=== PATIENT | male | born 1945 ===

== ENCOUNTER → 2018-06-05 | Outpatient (CLI) | payer MEDICARE, OTHER ==
[~2018-06-05] MED LIST: ALBU90OI INH; ALLO300 PO; AMLO10 PO; AMLO5; AMLO5 PO; AMOX875; ASPI81CH; ASPI81CH PO; ASPI81EC; ASPI81EC PO; BYSTOLIC 20 MG PO; CALMAGZIN PO; CAND4; CARV25 PO; CITA20 PO; Calcium Magnes1 EACH PO; DABI150C; DABI150C PO; DIAZ5 PO; DOCU100 PO; FENO54; FLUT1DIS5 INH; FURO40 PO; GEMF600 PO; HYDACE10B PO; LANS15EC; LANS15EC PO; LANS30EC; LEG CRAMPS PM PO; MECL25 PO; META800; Mucinex600 MG PO; NEBI10 PO; OMEP20ER PO; OXAP600; OXAP600 PO; OXYACE5T PO; POTA10T PO; PROBIOTIC1 EAC1; QUIN200; ROSU10TA PO; TAMS.4ER PO; TUSSIN DM SYRU118 ML PO; VALS80 PO; Zithromax250 MG PO; [UNRECOGNIZED DRUG - REMARK]; [UNRECOGNIZED DRUG - REMARK]
[2018-06-05 19:31] LABS: Cholesterol 115 mg/dL (50-200); HDL Cholesterol 38 mg/dL (>39); LDL/HDL RATIO 1.2; Low Density Lipoprotein Chol 46 mg/dL (0-110); Triglycerides 153 mg/dL (30-160); Very Low Density Lipoprot Chol 30 mg/dL (6-32)
== END ==
LOC: LAB SHORT 15:08 → LAB 15:08
DX: I25.10 Atherosclerotic heart disease of native coronary artery without angina pectoris (principal)
CPT/HCPCS: 80061

== ENCOUNTER 2018-11-26 19:38 | Emergency (ER) | payer MEDICARE, OTHER ==
[~2018-11-26] VITALS: Ht 195.6 cm; Wt 108.9 kg
[2018-11-26 20:12] LABS: BASOPHILS ABSOLUTE AUTO 0.03 K/mm3 (0.00-0.23); BASOPHILS PERCENT AUTO 0 % (0-2); EOSINOPHILS ABSOLUTE AUTO 0.25 K/mm3 (0.00-0.68); EOSINOPHILS PERCENT AUTO 3 % (0-6); Hemoglobin 14.6 g/dL (13.5-17.5); IMMATURE GRAN ABSOLUTE AUTO 0.03 K/mm3 (0.00-0.10); IMMATURE GRAN PERCENT AUTO 0 % (0-1); LYMPHOCYTES ABSOLUTE AUTO 1.37 K/mm3 (0.84-5.20); LYMPHOCYTES PERCENT AUTO 17 % (21-46); MONOCYTES ABSOLUTE AUTO 1.18 K/mm3 (0.16-1.47); MONOCYTES PERCENT AUTO 15 % (4-13); Mean Corpuscular HGB 30.5 pg (26.0-34.0); Mean Corpuscular HGB Conc 33.2 g/dL (31.5-36.5); Mean Corpuscular Volume 92 fL (80-100); Mean Platelet Volume 10.7 fL (9.1-12.4); NEUTROPHILS ABSOLUTE AUTO 5.14 K/mm3 (1.96-9.15); NEUTROPHILS PERCENT AUTO 64 % (41-73); Platelet Count 186 K/mm3 (150-400); RDW Standard Deviation 44.3 fL (35.1-46.3); Red Blood Cell Count 4.78 M/mm3 (4.30-5.90)
[2018-11-26 20:30] LABS: Alanine Aminotransfer (ALT/SGP 18 U/L (12-78); Albumin, Blood 3.8 g/dL (3.4-5.0); Alk Phos 84 U/L (50-136); Anion Gap 8 mmol/L (6-16); Aspartate Aminotrans (AST/SGOT 24 U/L (12-37); Bilirubin, Total 0.7 mg/dL (0.1-1.0); Blood Urea Nitrogen 17 mg/dL (8-24); Bun/Creatinine Ratio 16.8 (12.0-20.0); CO2, Blood 25 mmol/L (21-32); Calcium, Blood 8.6 mg/dL (8.5-10.1); Chloride, Blood 105 mmol/L (98-108); Creatinine, Blood 1.01 mg/dL (0.60-1.20); Globulin, Blood 3.9 g/dL (2.2-4.0); Glomerular Filtration Rate >60 (60-); Glucose, Blood 99 mg/dL (70-99); Sodium, Blood 138 mmol/L (136-145); Total Protein, Blood 7.7 g/dL (6.4-8.2)
[2018-11-26] MEDS ORDERED: Prednisone20 MG PO (21:46)
== END 2018-11-26 22:02 | disposition home or self-care (01) ==
LOC: ER 19:38
PROVIDERS: Physician Assistant
DX: L95.9 Vasculitis limited to the skin, unspecified (principal); Z87.891 Personal history of nicotine dependence; Z88.5 Allergy status to narcotic agent; Z88.8 Allergy status to other drugs, medicaments and biological substances; Z79.899 Other long term (current) drug therapy; Z79.82 Long term (current) use of aspirin
CPT/HCPCS: 36415; 80053; 85025; 93971; 99283-25

== ENCOUNTER → 2021-10-06 | Outpatient (CLI) | payer MEDICARE, OTHER ==
[~2021-10-06] MED LIST changes: +Prednisone20 MG PO
[2021-10-06 17:18] LABS: Anion Gap 10 mmol/L (6-16); Blood Urea Nitrogen 11 mg/dL (8-24); Bun/Creatinine Ratio 13.1 (12.0-20.0); CO2, Blood 27 mmol/L (21-32); Calcium, Blood 9.6 mg/dL (8.5-10.1); Chloride, Blood 103 mmol/L (98-108); Creatinine, Blood 0.84 mg/dL (0.60-1.20); Glomerular Filtration Rate >60 (60-); Glucose, Blood 105 mg/dL (70-99); Potassium, Blood 3.8 mmol/L (3.5-5.5); Sodium, Blood 140 mmol/L (136-145)
== END | disposition home or self-care (01) ==
LOC: LAB 16:56 → LAB SHORT 16:56
PROVIDERS: Family Medicine
DX: R60.0 Localized edema (principal)
CPT/HCPCS: 80048; 83880

== ENCOUNTER → 2023-01-19 | Outpatient (CLI) | payer MEDICARE, OTHER ==
[~2023-01-19] MED LIST changes: +CYCL10 PO; +ELIQUIS5 M2 PO; +LIDO700A20 TOP; +PROBIOTIC1 EA13 PO; +TRAM50 PO; +ZINC15 PO
[2023-01-21 08:48] LABS: Stool Occult Blood Guaiac 1 Neg (Neg)
== END | disposition home or self-care (01) ==
LOC: LAB 19:15 → LAB SHORT 19:15
PROVIDERS: Internal Medicine Gastroenterology
DX: Z12.11 Encounter for screening for malignant neoplasm of colon (principal)
CPT/HCPCS: 82270

== ENCOUNTER 2023-08-28 23:04 | Emergency (ER) | payer MEDICARE, OTHER ==
[~2023-08-28] VITALS: Ht 198.1 cm; Wt 95.2 kg
[2023-08-28 23:30] LABS: BASOPHILS ABSOLUTE AUTO 0.02 K/mm3 (0.00-0.23); BASOPHILS PERCENT AUTO 0 % (0-2); EOSINOPHILS ABSOLUTE AUTO 0.02 K/mm3 (0.00-0.68); EOSINOPHILS PERCENT AUTO 0 % (0-6); Hematocrit 34.9 % (37.0-53.0); Hemoglobin 11.8 g/dL (13.5-17.5); IMMATURE GRAN ABSOLUTE AUTO 0.03 K/mm3 (0.00-0.10); IMMATURE GRAN PERCENT AUTO 0 % (0-1); LYMPHOCYTES ABSOLUTE AUTO 0.74 K/mm3 (0.84-5.20); LYMPHOCYTES PERCENT AUTO 7 % (21-46); MONOCYTES PERCENT AUTO 11 % (4-13); Mean Corpuscular HGB 31.3 pg (26.0-34.0); Mean Corpuscular HGB Conc 33.8 g/dL (31.5-36.5); Mean Corpuscular Volume 93 fL (80-100); Mean Platelet Volume 10.3 fL (9.1-12.4); NEUTROPHILS ABSOLUTE AUTO 8.98 K/mm3 (1.96-9.15); NEUTROPHILS PERCENT AUTO 82 % (41-73); Platelet Count 220 K/mm3 (150-400); RDW Standard Deviation 44.4 fL (35.1-46.3); Red Blood Cell Count 3.77 M/mm3 (4.30-5.90); White Blood Cell Count 10.99 K/mm3 (4.00-11.30)
[2023-08-28 23:50] LABS: Albumin, Blood 3.2 g/dL (3.4-5.0); Albumin/Globulin Ratio 0.9 (0.8-1.8); Bun/Creatinine Ratio 22.1 (12.0-20.0); Calcium, Blood 8.6 mg/dL (8.5-10.1); Globulin, Blood 3.7 g/dL (2.2-4.0); Magnesium, Blood 2.2 mg/dL (1.6-2.4); Potassium, Blood 4.2 mmol/L (3.5-5.5); Total Protein, Blood 6.9 g/dL (6.4-8.2)
[2023-08-29 00:07] LABS: Influenza A, PCR NEGATIVE (NEGATIVE); Influenza B, PCR NEGATIVE (NEGATIVE); Resp Syncytial Virus, PCR NEGATIVE (NEGATIVE); SARS-Cov-2 (COVID-19) PCR, MMC NEGATIVE (NEGATIVE)
[2023-08-29 00:30] VITALS: BP 88/78
[2023-08-29 02:37] LABS: Source, Urine Clean Catch
[2023-08-29 02:47] LABS: Blood, Urine Neg (Neg); Glucose Qualitative, Urine Neg (Neg); Ketones, Urine 1+ (Neg); Leukocyte Esterase, Urine 1+ (Neg); Nitrite, Urine Neg (Neg); Protein, Urine 2+ (Neg); Urobilinogen, Urine 2+ (Normal)
[2023-08-29 02:52] LABS: Bilirubin, Urine 1+ (Neg)
[2023-08-29 02:53] LABS: Appearance, Urine Hazy (Clear); Color, Urine Amber (P-Yellow)
[2023-08-29 02:58] LABS: White Blood Cells, Urine 0-2 /hpf (0-5)
[2023-08-29 02:59] LABS: Amorphous Light (0-Heavy); Bacteria Few /hpf; Mucus Mod (0-Heavy); Red Blood Cells, Urine Not Seen /hpf (0-2); Squamous Epithelial Cells Few /hpf (Few); Uric Acid Crystals Few /hpf
== END 2023-08-29 03:35 | disposition home or self-care (01) ==
LOC: ER 23:04
PROVIDERS: Student in an Organized Health Care Education/Training Program
DX: S01.01XA Laceration without foreign body of scalp, initial encounter (principal); M25.552 Pain in left hip; M25.561 Pain in right knee; M25.562 Pain in left knee; M54.50 Low back pain, unspecified; I10 Essential (primary) hypertension; W18.30XA Fall on same level, unspecified, initial encounter; Z11.52 Encounter for screening for COVID-19; Z88.0 Allergy status to penicillin; Z88.5 Allergy status to narcotic agent; Z88.4 Allergy status to anesthetic agent; Z79.899 Other long term (current) drug therapy; Z79.82 Long term (current) use of aspirin; Z79.01 Long term (current) use of anticoagulants
CPT/HCPCS: 0241U; 51701; 70450; 71045; 72131; 73502; 73562-LT; 73562-RT; 80053; 81001; 83735; 84145; 85025; 93005; 93010; 99285-25; A9270; J7030; P9612

== ENCOUNTER 2023-11-01 15:17 | Emergency (ER) | payer MEDICARE, OTHER ==
[~2023-11-01] VITALS: Ht 195.6 cm; Wt 90.7 kg
[2023-11-01 16:22] VITALS: BP 122/59
[2023-11-01 17:02] LABS: BASOPHILS ABSOLUTE AUTO 0.03 K/mm3 (0.00-0.23); BASOPHILS PERCENT AUTO 0 % (0-2); EOSINOPHILS ABSOLUTE AUTO 0.19 K/mm3 (0.00-0.68); EOSINOPHILS PERCENT AUTO 2 % (0-6); Hemoglobin 11.2 g/dL (13.5-17.5); IMMATURE GRAN ABSOLUTE AUTO 0.03 K/mm3 (0.00-0.10); IMMATURE GRAN PERCENT AUTO 0 % (0-1); LYMPHOCYTES ABSOLUTE AUTO 0.91 K/mm3 (0.84-5.20); LYMPHOCYTES PERCENT AUTO 9 % (21-46); MONOCYTES ABSOLUTE AUTO 1.21 K/mm3 (0.16-1.47); MONOCYTES PERCENT AUTO 11 % (4-13); Mean Corpuscular HGB 29.4 pg (26.0-34.0); Mean Corpuscular HGB Conc 32.9 g/dL (31.5-36.5); Mean Corpuscular Volume 89 fL (80-100); Mean Platelet Volume 9.4 fL (9.1-12.4); NEUTROPHILS ABSOLUTE AUTO 8.39 K/mm3 (1.96-9.15); NEUTROPHILS PERCENT AUTO 78 % (41-73); Platelet Count 359 K/mm3 (150-400); RDW Coefficient Variation 13.2 % (11.7-14.2); RDW Standard Deviation 42.9 fL (35.1-46.3); Red Blood Cell Count 3.81 M/mm3 (4.30-5.90); White Blood Cell Count 10.76 K/mm3 (4.00-11.30)
[2023-11-01 17:43] LABS: Albumin, Blood 2.6 g/dL (3.4-5.0); Albumin/Globulin Ratio 0.6 (0.8-1.8); Bilirubin, Total 0.5 mg/dL (0.1-1.0); Bun/Creatinine Ratio 24.5 (12.0-20.0); Calcium, Blood 8.8 mg/dL (8.5-10.1); Creatinine, Blood 0.65 mg/dL (0.60-1.20); Globulin, Blood 4.1 g/dL (2.2-4.0); Total Protein, Blood 6.7 g/dL (6.4-8.2)
== END 2023-11-01 18:54 | disposition home or self-care (01) ==
LOC: ER 15:17
PROVIDERS: Physician Assistant
DX: R60.0 Localized edema (principal); Z88.0 Allergy status to penicillin; Z88.4 Allergy status to anesthetic agent; Z88.5 Allergy status to narcotic agent; Z79.82 Long term (current) use of aspirin; Z79.899 Other long term (current) drug therapy; Z79.01 Long term (current) use of anticoagulants; Z87.891 Personal history of nicotine dependence
CPT/HCPCS: 80053; 83880; 85025; 99284

== ENCOUNTER 2023-11-05 01:57 | Inpatient (IN) | payer MEDICARE, OTHER ==
[2023-11-05] VITALS (19 sets, daily range): BP systolic 98–154; BP diastolic 65–104
[~2023-11-05] VITALS: Ht 190.5 cm; Wt 86.6 kg
[2023-11-05 05:26] LABS: BASOPHILS ABSOLUTE AUTO 0.02 K/mm3 (0.00-0.23); BASOPHILS PERCENT AUTO 0 % (0-2); EOSINOPHILS ABSOLUTE AUTO 0.07 K/mm3 (0.00-0.68); EOSINOPHILS PERCENT AUTO 1 % (0-6); Hematocrit 34.4 % (37.0-53.0); Hemoglobin 11.3 g/dL (13.5-17.5); IMMATURE GRAN ABSOLUTE AUTO 0.12 K/mm3 (0.00-0.10); IMMATURE GRAN PERCENT AUTO 1 % (0-1); LYMPHOCYTES ABSOLUTE AUTO 0.66 K/mm3 (0.84-5.20); LYMPHOCYTES PERCENT AUTO 6 % (21-46); MONOCYTES ABSOLUTE AUTO 0.73 K/mm3 (0.16-1.47); MONOCYTES PERCENT AUTO 6 % (4-13); Mean Corpuscular HGB 29.2 pg (26.0-34.0); Mean Corpuscular HGB Conc 32.8 g/dL (31.5-36.5); Mean Corpuscular Volume 89 fL (80-100); Mean Platelet Volume 9.7 fL (9.1-12.4); NEUTROPHILS ABSOLUTE AUTO 9.75 K/mm3 (1.96-9.15); NEUTROPHILS PERCENT AUTO 86 % (41-73); Platelet Count 319 K/mm3 (150-400); RDW Coefficient Variation 13.2 % (11.7-14.2); RDW Standard Deviation 42.8 fL (35.1-46.3); Red Blood Cell Count 3.87 M/mm3 (4.30-5.90); White Blood Cell Count 11.35 K/mm3 (4.00-11.30)
[2023-11-05 05:55] LABS: Albumin, Blood 2.4 g/dL (3.4-5.0); Albumin/Globulin Ratio 0.6 (0.8-1.8); Bilirubin, Total 0.7 mg/dL (0.1-1.0); Bun/Creatinine Ratio 16.2 (12.0-20.0); Calcium, Blood 8.5 mg/dL (8.5-10.1); Creatinine, Blood 0.62 mg/dL (0.60-1.20); Total Protein, Blood 6.4 g/dL (6.4-8.2)
[2023-11-05 06:23] LABS: Influenza A, PCR NEGATIVE (NEGATIVE); Influenza B, PCR NEGATIVE (NEGATIVE); Resp Syncytial Virus, PCR NEGATIVE (NEGATIVE); SARS-Cov-2 (COVID-19) PCR, MMC NEGATIVE (NEGATIVE)
[2023-11-05 10:45] LABS: PCO2 Arterial 34.8 mmHg (35-45); PO2 Arterial 63.3 mmHg (80-100); pH Blood Arterial 7.48 (7.35-7.45)
--- NOTE | 2023-11-05 16:31 | NUR ---
ASSUMPTION OF CARE PT ARRIVED TO PCU 10 FROM ER, TRANSFERRED VIA SLIDER SHEET TO BED. PT ALERT TO SELF AND , FOLLOWING COMMANDS, URIBE BUT QUITE CONFUSED/ DISORIENTED AT BASELINE. PT FORGETFUL OF HIP FX, CONTINUES TO TRY TO GET UP AND MOVE IN BED, THEN YELLS OUT IN PAIN. PT DIFFICULT TO REDIRECT ONCE HE TRIES TO EXERT HIMSELF. LS COARSE, PT COUGHING FREQUENTLY. INITIALLY ON OXIMIZER @ 15LPM, TRANSITIONED TO NASAL CANULA @ 4LPM c SATS >90%. SR ON THE CONSTRUCTION MGR. CONDOM CATHETER IN PLACE, DRAINING LIGHT YELLOW URINE. LR STARTED VIA RAC IV, SECOND 20 GA IV ESTABLISHED IN LFA DUE TO OCCLUDING RAC IV. PTS FAMILY AT BEDSIDE UPDATING THIS NURSE OF PTS HISTORY. FAMILY STATES PTS DEMENTIA HAS WORSENED EXPONENTIALLY OVER THE PAST FEW MONTHS AND PT BECOMES AGITATED/ COMBATIVE AND IS DIFFICULT TO REDIRECT. FAMILY WOULD LIKE TO MEET WITH CARE TEAM TO DISCUSS PLACEMENT AT REHAB/ CUSTODIAL WITH DISCHARGE.
--- NOTE | 2023-11-05 17:35 | NUR ---
UPDATE PT BECOMING MORE AGITATED, TEARING LINES OFF, YELLING AT STAFF, NOT REDIRECTABLE. ATTEMPTING DISTRACTION WITH NO LUCK, PT CONTINUES TO YELL OUT. AUDITORY AND VISUAL HALLUCINATIONS. CALLING OUT FOR ALICIA AND RUDDY. PT NOT TOLERATING NASAL CANULA, CONTINUES TO RIP IT OFF AND SWING AT STAFF WHEN TRYING TO PUT BACK ON.
--- NOTE | 2023-11-05 18:35 | NUR ---
SUMMARY PT QUITE AGITATED, NOT REDIRECTABLE. BITING AND SWINGING AT STAFF WHEN CLOSE. CONTINUES TO PULLL OFF ALL LINES/ CORDS. WILL NOT TOLERATE PO MEDICINES. CONTACTED PHYSICIANS, NEW ORDERS FOR IM OLANZAPINE, MEDICATED WITH MULTIPLE NURSES IN ROOM TO PROTECT PATIENT AND STAFF. IF PT CONINUES TO ESCALATE, PLAN TO TRANFER TO ICU FOR IV PRECEDEX.
--- NOTE | 2023-11-05 20:32 | NUR ---
TRANSFER/FAMILY UPDATE: 714: SPOKE WITH DAUGHTER ABOUT PLAN, KNOWLEDGE OF PLAN, AND WISHES FOR CARE. SUNDAR SPOKE IN WISHES FOR FURTHER CARE. FAMILY WISHES ARE TO CONTINUE TO CARE IN ORDER TO POTENTIALLY GET SURGERY. DR. COLE WAS UPDATED OF SITUATION ORDERS FOR PRECEDEX, RESTRAINTS, HALLMAN, AND ICU TRANSFER. PATIENT WAS TRANSFED AT 2024. THORUGH THE PROCESS INCREASED MEDICATIONS WERE ATTEMPTED, PATIENT INCREASINGLY AGITATED, SITTER AT BEDSIDE, OXYGEN DEMAND WAS SEVERELY DECREASED, BEING COMBATIVE WITH STAFF. PRIMARY GAS MASK INSPECTOR GAVE REPORT TO WOOD HANDLER. ICU CHARGE AND I CONSULTED AND NOTIFIED MULTIPLE TIMES. ADDITION CALL TO FAMILY AFTER TRANSFER AND PATIETN SETTLED APPROX 2034. SUNDAR UNDERSTOOD WITH NO CONCERNS OR QUESTIONS AT THIS TIME.
--- NOTE | 2023-11-05 21:05 | NUR ---
TRANSFER NOTE: UPON START OF SHIFT PT WAS AGGITATED AND REFUSING O2. HIS SPO2 READING WAS IN THE 70S. THE OPEN HEARTH HELPER GAVE BLOW BY O2 VIA NONREBREATHER MASK TO INCREASE SP02 TO THE 80S. PT WAS MEDICATED PER MAR WITH NO IMPROVEMENTS. AFTER CONSULTING WITH THE PCU CHARGE NURSE, MD WAS CALLED AND PT WAS ORDERED TO GO TO ICU. FAMILY WAS NOTIFIED BY PCU CHARGE AND PT WAS TRANSFERED. ICU ACCEPTED PT AND NIGHT MD WAS UPDATED AT BEDSIDE. BEDSIDE REPORT WAS GIVEN TO ICU NURSE. PT RESTRAINED TO PROTECT HIMSELF FROM HARM TO SELF. NONREBREATHER WAS REAPPLIED TO INCREASE SPO2.
[2023-11-05 21:06] LABS: Source, Urine Foley catheter
[2023-11-05 21:13] LABS: Bilirubin, Urine Neg (Neg); Blood, Urine 2+ (Neg); Glucose Qualitative, Urine Neg (Neg); Ketones, Urine Neg (Neg); Leukocyte Esterase, Urine Neg (Neg); Nitrite, Urine Neg (Neg); Protein, Urine 1+ (Neg); Specific Gravity, Urine 1.005 (1.003-1.022); Urobilinogen, Urine NORM (Normal)
[2023-11-05 21:21] LABS: Appearance, Urine Clear (Clear); Color, Urine Pale Yellow (P-Yellow)
[2023-11-05 21:22] LABS: Bacteria Rare /hpf; Red Blood Cells, Urine 0-2 /hpf (0-2); Squamous Epithelial Cells Not Seen /hpf (Few); White Blood Cells, Urine 0-2 /hpf (0-5)
[2023-11-05 21:29] LABS: PCO2 Arterial 35.7 mmHg (35-45); PO2 Arterial 71.5 mmHg (80-100); pH Blood Arterial 7.49 (7.35-7.45)
--- NOTE | 2023-11-05 21:30 | NUR ---
PT TO ROOM ICU 14 FROM PCU 10. ARRIVES AT 2015. SLIDE TRANSFERS TO BED WITH 4 PERSON ASSIST. EXTRA TO PROTECT HIP AND LOWER EXTREMITIES. PT VERY AGITATED, AND YELLING AT STAFF. UPON ARRIVAL MEDICATED PT WITH 50 MCG'S FENTANYL. HOSPITALIST IN UNIT. ORDERS RECEIVED. DID MEDICATE PT PER NEW ORDERS WITH 2 MG ATIVAN. THIS AFFECTIVE IN CALMING PT. SOFT WRIST RESTRAINTS IN PLACE TO PROTECT PT FROM PULLING OFF OXYGEN. DID NEED TO PLACE NON-REBREATHER AT FLUSH UPON ARRIVAL. NEW 18 GAUGE IV STARTED IN RIGHT UPPER ARM. PT TOLERATES WELL. OXYGEN SATURATION > 90. WAS IN 75 PERCENT WITHOUT OXYGEN. WILL REVIEW CHART AND PLAN OF CARE FOR THIS PT.
[2023-11-06] VITALS (38 sets, daily range): BP systolic 89–161; BP diastolic 63–130
--- NOTE | 2023-11-06 02:00 | NUR ---
PT HAS BEEN MEDICATED AGAIN WITH 50 MCG'S OF FENTANYL FOR LEFT HIP FRACTURE PAIN. PT REMAINS CALM. HAVE REMOVED SOFT WRIST RESTRAINTS. WILL MONITOR FOR PT SAFETY. 1:1 SITTER WAS EXCUSED AFTER FIRST HOUR AND A HALF OF PT BEING IN UNIT.
[2023-11-06 04:01] LABS: BASOPHILS ABSOLUTE AUTO 0.06 K/mm3 (0.00-0.23); BASOPHILS PERCENT AUTO 0 % (0-2); EOSINOPHILS ABSOLUTE AUTO 0.16 K/mm3 (0.00-0.68); EOSINOPHILS PERCENT AUTO 1 % (0-6); Hematocrit 38.4 % (37.0-53.0); Hemoglobin 12.4 g/dL (13.5-17.5); IMMATURE GRAN ABSOLUTE AUTO 0.06 K/mm3 (0.00-0.10); IMMATURE GRAN PERCENT AUTO 0 % (0-1); LYMPHOCYTES ABSOLUTE AUTO 0.66 K/mm3 (0.84-5.20); LYMPHOCYTES PERCENT AUTO 4 % (21-46); MONOCYTES ABSOLUTE AUTO 1.11 K/mm3 (0.16-1.47); MONOCYTES PERCENT AUTO 7 % (4-13); Mean Corpuscular HGB 29.2 pg (26.0-34.0); Mean Corpuscular HGB Conc 32.3 g/dL (31.5-36.5); Mean Corpuscular Volume 90 fL (80-100); Mean Platelet Volume 9.5 fL (9.1-12.4); NEUTROPHILS ABSOLUTE AUTO 12.91 K/mm3 (1.96-9.15); NEUTROPHILS PERCENT AUTO 86 % (41-73); Platelet Count 310 K/mm3 (150-400); RDW Coefficient Variation 13.2 % (11.7-14.2); RDW Standard Deviation 43.9 fL (35.1-46.3); Red Blood Cell Count 4.25 M/mm3 (4.30-5.90); White Blood Cell Count 14.96 K/mm3 (4.00-11.30)
[2023-11-06 04:25] LABS: Albumin, Blood 2.2 g/dL (3.4-5.0); Albumin/Globulin Ratio 0.5 (0.8-1.8); Bilirubin, Total 0.7 mg/dL (0.1-1.0); Bun/Creatinine Ratio 14.8 (12.0-20.0); Calcium, Blood 8.7 mg/dL (8.5-10.1); Creatinine, Blood 0.75 mg/dL (0.60-1.20); Globulin, Blood 4.1 g/dL (2.2-4.0); Magnesium, Blood 2.4 mg/dL (1.6-2.4); Potassium, Blood 4.1 mmol/L (3.5-5.5); Total Protein, Blood 6.3 g/dL (6.4-8.2)
--- NOTE | 2023-11-06 06:14 | NUR ---
PT WAS FEBRILE WITH TEMP TO 101.7. MEDICATED PT WITH 650 MG TYLENOL SUPPOSITORY TIMES ONE. THIS AFFECTIVE IN DECREASING TEMP. BLOOD CULTURES DONE. PT HAS REMAINED WITHOUT PULLING AT LINES OR TUBES. NON-REBREATHER MASK REMAINS IN USE WITH FLOW AT 12 LITERS. DID ATTEMPT TO TRANSITION PT TO VENTI-MASK AT FLUSH WHEREAS HE WAS UNABLE TO MAINTAIN SATURATIONS ABOVE 88 PERCENT. TURNS DONE WITH RESPECT OF FRACTURED LEFT HIP. NOTED: GOOD DISTAL CMS CHECKS. WILL CONTINUE TO MONITOR PT, AND WILL REPORT OFF TO ONCOMING RN. OF NOTE: PT CURRENTLY PCU STATUS. PRECEDEX WAS NEVER STARTED SECONDARY TO AFFECTIVNESS OF FENTANYL AND ONE TIME ATIVAN DOSE.
--- NOTE | 2023-11-06 06:43 | NUR ---
MEDICATED PT AGAIN WITH 25 MCG'S FENTANYL. PT ABLE TO WAKE AND ANSWER A FEW QUESTIONS. ABLE TO HAVE MODERATELY STRONG COUGH. HAVE CHANGED PT TO VENTI-MASK AT 10 L/M. MAINTAINS SATURATIONS > 90 PERCENT WITH THIS. WILL TITRATE ABLE.
--- NOTE | 2023-11-06 07:00 | NUR ---
ASSUMPTION OF CARE BEDSIDE REPORT RECEIVED. PT IS SOMNOLENT, WAKENS TO VERBAL STIMULI. HE IS CURRENTLY A&OX2. HE IS ON 10L OXYMASK WITH SPO2 >99%. TITRATED TO 5L, SPO2 >97%. HR 90S-120S, BP STABLE. HALLMAN PATENT AND DRAINING TO GRAVITY. BED IN LOW POSITION, CALL LIGHT WITHIN REACH, BED ALARM ON.
--- NOTE | 2023-11-06 12:37 | NUR ---
UPDATE PT IS A&OX1. MENTATION TRANSITIONS BETWEEN SOMNOLENT AND AGITATED. HE CONTINUES TO HAVE A MOIST COUGH AND RHONCHI. HE IS ON 5L OXYMASK WITH SPO2 >93%. ORAL CARE PROVIDED TWICE AND HE REMAINS NPO. HALLMAN PATENT AND DRAINING TO GRAVITY. HR VARIES BETWEEN 80S-130S, BP STABLE. FAMILY AT BEDSIDE, UPDATED BY HOSPITALIST AND MARKETING CAMPAIGN ANALYST. PALLIATIVE CARE CURRENTLY AT BEDSIDE.
--- NOTE | 2023-11-06 14:36 | NUR ---
Met with patients son and daughter. theraputic touch with patient. He is tremulous, coarse lung sounds on mask. Nursing placed scapolmine patch. review of reducing sedatives and up with narcotics showing some splinting and nonverbal pain signs. Review medicating for nause and GI care as he cannot express nausea. Had a comprehensive conversation on pronosis and risks and benefits of surgery and hospice care. Avised family to make the choice holistic. He and his are still on their property in their home. The has lung cancer and is facing hospice. Explained the palliative nature of the surgery for comfort. The risk of not being able to come off the ventilator. Risk of passing in hospital. We discussed hoem versus placement. Gave them suggestions on care giving. 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 Also gave them agency information and suggested they call [facility] work office. Praised them for their dedication. from their expressions sounds like home with both parents on hospice would provide dignity and comfort to the parents and closure for the family. kps scor is 30% pt could transition on this admission. and
--- NOTE | 2023-11-06 14:37 | NUR ---
PRIOR TO SURGERY FAMILY WOULD LIKE TO BRING PT'S SPOUSE IN TO VISIT PT PRIOR TO SURGERY. IF ABLE, PLEASE NOTIFY FAMILY OF SURGERY DATE/TIME SO THEY CAN MAKE ARRANGEMENTS.
--- NOTE | 2023-11-06 18:50 | NUR ---
SHIFT SUMMARY PT HAS BEEN A&OX1-2 THROUGHOUT THE DAY. HE ANSWERS IN 1-4 WORD PHRASES, ANSWERS INCONSISTENTLY BUT APPEARED TO RECOGNIZE FAMILY. HE TRANSITIONS BETWEEN DROWSY AND RESTLESS/AGITATED. HE IS CURRENTLY ON 10L OXYMASK. HE CONTINUES TO HAVE A MOIST COUGH. PT UNABLE TO PARTICIPATE IN SWALLOW STUDY TODAY DUE TO MENTATION, REMAINS NPO WITH ROUTINE ORAL CARE. HALLMAN PATENT AND DRAINING TO GRAVITY. TMAX 101.9. MEDICATED PER EMAR, BLANKETS REMOVED AND FAN ON. HR 120S-130S, BP STABLE. FAMILY AT BEDSIDE THROUGHOUT THE DAY AND UPDATED. FAMILY PLANS TO BE AT BEDSIDE AROUND 8:30 TOMORROW MORNING AND HOPING TO BE HERE WHEN HOSPITALIST ROUNDS.
--- NOTE | 2023-11-06 19:00 | NUR ---
CARE ASSUMPTION DURING BEDSIDE SHIFT REPORT Ruslan MARQUEZ RN THE PT IS SLEEPING COMFORTABLY IN BED. PT HAS OXY-MASK W 10L SHOWING SPO2 >94%. MONITOR SHOWING ST 130'S. BP WNL AND STABLE. PT HAS TEMP HALLMAN W CLEAR YELLOW URINE IN THE BAG AND MONITOR SHOWING TEMP OF 101.0 TRENDING DOWN. CARE ASSUMED AT THIS TIME.
[2023-11-07 03:17] VITALS: BP 110/58
[2023-11-07 04:22] LABS: BASOPHILS ABSOLUTE AUTO 0.05 K/mm3 (0.00-0.23); BASOPHILS PERCENT AUTO 0 % (0-2); EOSINOPHILS ABSOLUTE AUTO 0.15 K/mm3 (0.00-0.68); EOSINOPHILS PERCENT AUTO 1 % (0-6); IMMATURE GRAN ABSOLUTE AUTO 0.07 K/mm3 (0.00-0.10); IMMATURE GRAN PERCENT AUTO 0 % (0-1); LYMPHOCYTES PERCENT AUTO 5 % (21-46); MONOCYTES PERCENT AUTO 9 % (4-13); Mean Corpuscular HGB 29.1 pg (26.0-34.0); Mean Corpuscular HGB Conc 32.5 g/dL (31.5-36.5); Mean Corpuscular Volume 90 fL (80-100); Mean Platelet Volume 9.9 fL (9.1-12.4); NEUTROPHILS ABSOLUTE AUTO 13.94 K/mm3 (1.96-9.15); NEUTROPHILS PERCENT AUTO 85 % (41-73); Platelet Count 342 K/mm3 (150-400); RDW Coefficient Variation 13.3 % (11.7-14.2); RDW Standard Deviation 43.8 fL (35.1-46.3); Red Blood Cell Count 4.47 M/mm3 (4.30-5.90); White Blood Cell Count 16.41 K/mm3 (4.00-11.30)
[2023-11-07 04:35] LABS: Albumin/Globulin Ratio 0.5 (0.8-1.8); Bilirubin, Total 0.6 mg/dL (0.1-1.0); Bun/Creatinine Ratio 28.5 (12.0-20.0); Calcium, Blood 8.5 mg/dL (8.5-10.1); Creatinine, Blood 0.63 mg/dL (0.60-1.20); Globulin, Blood 4.1 g/dL (2.2-4.0); Potassium, Blood 4.1 mmol/L (3.5-5.5); Total Protein, Blood 6.1 g/dL (6.4-8.2)
--- NOTE | 2023-11-07 05:59 | NUR ---
SHIFT SUMMARY PT LETHARGIC. ACKNOWLEDGES BY NODDING, RAISING EYE BROWS. SP02>90, STARTED CARE ASSUMPTION ON 10L VIA FACE MASK, NOW 15L. DEEP SUCTIONED BY RT X2, W/ THICK WHITE/RED TINGED SPUTUM. TELEMETRY SHOWS CONVERTING BETWEEN NSR, HR 70'S-80'S TO AFIB, HR 130'S. PT SUSTAINING 130'S, CALL PLACED TO MD STEWARD. MD STEWARD W/ ORDERS FOR LOPRESSOR PUSH, SEE EMAR. GIVEN X1, PT CURRENT NSR, HR 76. BP SOFT. HALLMAN CATHETER DRAINING YELLOW URINE TO GRAVITY. NO BM THIS SHIFT. PAIN MEDS GIVEN PER EMAR X1. PT REMAINED NPO PER ORDERS. ORAL DONE W/ SUCTION. ABX INFUSED PER EMAR. REPOSITIONED Q2H. PT RESTING IN BED, CALL LIGHT IN REACH.
[2023-11-07 07:00] VITALS: BP 112/72
[2023-11-07 08:00] VITALS: BP 105/70
[2023-11-07 09:00] VITALS: BP 112/59
--- NOTE | 2023-11-07 13:34 | NUR ---
Spiritual care visit conducted. Patient is minimally responsive, spouse Yuni is bedside and their 3 grown children and their spouses are present. I focus my attention on Yuni as the family listens in. She tells me about thier 60 yrs of marriage their, love of their children and grandchildren and the Protestant juan c that they have. As I conduct a life review of the couple, she tells me about some to the deep challenges and tremendous victories. We also talk about and dying and the afterlife. I pray and direct my comments in the direction of their belief system which appears to have a comforting effect. I will cotninue to remain available to patient and family.
--- NOTE | 2023-11-07 16:41 | NUR ---
pt comfortable switched to a larger room. Family at bedside oral care providied. Chaplian at bedside, will monitor looks to be progressing. Family concerned about ability to get him home with his hip advised we will review in morning. Will seek possible inpatient hospice.
--- NOTE | 2023-11-07 16:46 | NUR ---
Second visit with family today. Yuni bedside and planning to stay for the night. She is in poor health and would benefit from rest. I encourage self care for her body and emotions, to rest in the timing of things and stay in for the long haul by managing her sleep well. Ynui responded well and to the encouragement and prayer and voiced that she will go home to rest. I will cotninue to remain available to patient and family.
--- NOTE | 2023-11-07 18:50 | NUR ---
SHIFT SUMMARY: PT HAS BEEN MINIMALLY RESPONSIVE TO STAFF, OCCASIONALLY ANSWERS QUESTIONS W/1-2 WORD ANSWERS. PROVIDER, PASTORAL CARE, PALLIATIVE CARE AND THIS RN AT BEDSIDE W/FAMILY TO DISCUSS PROGNOSIS. PT TRANSITIONED TO COMFORT CARE. PT HAS BEEN MEDICATED PER EMAR, Q2H TURNS, ORAL CARE PT ALLOWS, HALLMAN CONTINUES PATENT AND DRAINING TO GRAVITY. AT THIS TIME, PT IS RESTING IN BED W/FAMILY AT BEDSIDE. RESPIRATIONS EVEN AND UNLABORED. WILL CONTINUE TO MONITOR AND TREAT ACCORDINGLY UNTIL CHANGE OF SHIFT.
--- NOTE | 2023-11-07 22:32 | NUR ---
DOD: 2251 MD, FAMILY, AND CHARGE NURSE NOTIFIED. FAMILY CHOSE [facility]. CHARGE NURSE CALLED THE HOME.
== END 2023-11-07 22:44 | DRG 177 ==
LOC: ER 01:57 → PCU 06:14 → ICUE 06:14 → PCU 06:14 → ICUE 20:15 → PCU 11-06 21:15
PROVIDERS: Nurse Practitioner Acute Care; Student in an Organized Health Care Education/Training Program; ADMIT Internal Medicine
PROC: 4A133R1 Monitoring of Arterial Saturation, Peripheral, Percutaneous Approach (ICD-10-PCS; principal; 2023-11-05)
DX: J69.0 Pneumonitis due to inhalation of food and vomit (principal); J96.01 Acute respiratory failure with hypoxia; S72.002A Fracture of unspecified part of neck of left femur, initial encounter for closed fracture; Z51.5 Encounter for palliative care; Z66 Do not resuscitate; R91.8 Other nonspecific abnormal finding of lung field; N40.0 Benign prostatic hyperplasia without lower urinary tract symptoms; F03.90 Unspecified dementia, unspecified severity, without behavioral disturbance, psychotic disturbance, mood disturbance, and anxiety; I10 Essential (primary) hypertension; K21.9 Gastro-esophageal reflux disease without esophagitis; M10.9 Gout, unspecified; Z85.118 Personal history of other malignant neoplasm of bronchus and lung; E78.5 Hyperlipidemia, unspecified; I48.0 Paroxysmal atrial fibrillation; J43.9 Emphysema, unspecified; W18.30XA Fall on same level, unspecified, initial encounter; Y92.019 Unspecified place in single-family (private) house as the place of occurrence of the external cause; Z87.891 Personal history of nicotine dependence; Z79.01 Long term (current) use of anticoagulants; Z79.82 Long term (current) use of aspirin; Z11.52 Encounter for screening for COVID-19; Z28.21 Immunization not carried out because of patient refusal
CPT/HCPCS: 0241U; 31720; 36415; 36600; 51702; 70450; 71045; 71260; 73502; 80053; 81001; 82803; 83605; 83735; 83880; 84145; 85025; 92610; 93005; 93010; 94640; 94664; 94762; 96365-59; 96375-59; 96376-59; 99285-25; A9270; J0692; J1170; J1885; J1940; J1956; J2060; J3010; J7050; J7120; Q9967